=== PATIENT | male | born 1955 | race Caucasian/White ===

== ENCOUNTER → 2018-03-29 15:03 | Outpatient (CLI) | payer MEDICARE, SELFPAY ==
--- NOTE | 2018-03-29 15:50 | RAD_ITS ---
STUDY: X-RAY - ABDOMEN/PELVIS REASON FOR EXAM: Male, 62 years old. Follow-up bilateral renal stones multiple times. No current pain or issues. TECHNIQUE: Single AP view of the abdomen / pelvis. COMPARISON: 03/31/2016. 04/23/2015. FINDINGS: There is an unremarkable bowel gas pattern. The kidneys are not sufficiently visualized. No overt calculi detected. Stable atherosclerosis of the pelvic vessels. Age-appropriate osseous structures. RAD/Abdomen Single View IMPRESSION: No urolithiasis detected. Electronically Signed: Silvia Cruz MD at 2:42 EST , Service support ,
[2018-03-29 16:36] LABS: PSA,Total - Annual Screen 1.34 ng/mL (0.00-4.00)
--- OUTSIDE RECORDS SUMMARY | 2018-05-11 13:42 | XMS RPT_ITS ---
:1955 Author Organization OHIP Care Team Providers Name Role Phone MARTINEZ SRINIVASAN MD Attending Unavailable CRAIG MARTIN, MARTINEZ Berrios Primary Care Unavailable JACOB VELAZCO Attending Unavailable MARTINEZ SRINIVASAN MD Primary Care Unavailable MARTINEZ SRINIVASAN MD Attending Unavailable CRAIG MARTIN, MARTINEZ Berrios Primary Care Unavailable YAIMA MARTIN., DR. WHITTEN Attending Unavailable MARTINEZ SRINIVASAN MD Primary Care Unavailable JOSEPH Ibarra Attending Unavailable CRAIG MARTIN, MARTINEZ Berrios Primary Care Unavailable Poncho Aviles Attending Unavailable Poncho Aviles Referring Unavailable Martinez Srinivasan [facility] Care Unavailable PROBLEMS PROBLEMS DATE TYPE CONDITION / CODE ATTENDING STATUS SOURCE 08/04/2017 Admitting Mixed hyperlipidemia CRAIG MARTIN, Active [facility] Diagnosis / E78.2(ICD-10) [facility] Repository 08/04/2017 Admitting Type 2 diabetes CRAIG MARTIN, Active [facility] Diagnosis mellitus without [facility] complications / Repository E11.9(ICD-10) PROCEDURES PROCEDURES No Procedure Records FoundRESULTS RESULTS ABDOMEN SINGLE VIEW Observed: 03/29/2018 Status: F Source: [place] 3:37 PM [facility] HOSPITAL REPOSITORY [facility] Imaging Services [address] [place] [address] Abdomen Single View MR#: [id number] Acct: [id number] Name: VIPIN VELAZQUEZ Rep #: [id number] : 1955 M 62 From: Silvia Cruz MD PCP: Martinez Srinivasan MD Status: REG CLI Study: Abdomen Single View Date of Exam: 03/29/18 Exam# [id number] Ordering Dr: Poncho Aviles MD STUDY: X-RAY - ABDOMEN/PELVIS REASON FOR EXAM: Male, 62 years old. Follow-up bilateral renal stones multiple times. No current pain or issues. TECHNIQUE: Single AP view of the abdomen / pelvis. COMPARISON: 03/31/2016. 04/23/2015. FINDINGS: There is an unremarkable bowel gas pattern. The kidneys are not sufficiently visualized. No overt calculi detected. Stable atherosclerosis of the pelvic vessels. Age-appropriate osseous structures. RAD/Abdomen Single View IMPRESSION: No urolithiasis detected. 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 Values obtained with different assay methods cannot be used interchangably. When changing PSA assays in the course of monitoring a patient, additional sequential testing should be carried out to confirm baseline values. Performed By: #### L501.9910 #### [facility] [address] [place], [address] [facility] Collected: 03/09/2018 Status: F Source: [place] 7:43 AM [facility] REPOSITORY TYPE CODE TESTS RESULT OUT OF REFERENCE UNITS RANGE LAB GLU(LOINC) 80-115 mg/dL Glucose High Level 139 LAB NA(LOINC) 136-145 mmol/L Sodium Level 141 LAB K(LOINC) 3.5-5.1 mmol/L Potassium Level 4.5 LAB CL(LOINC) 98-107 mmol/L Chloride 103 LAB CO2(LOINC) 23-31 mmol/L CO2 30 LAB EBAL(LOINC mEq/L ) Electrolyte Balance 8.0 LAB BUN(LOINC) 7-18 mg/dL BUN 12 LAB CRE(LOINC) 0.70-1.30 mg/dL Creatinine Lvl (s) 0.91 LAB BC(LOINC) 7-27 ratio BUN/Creatinine 13 Ratio LAB CA(LOINC) 8.4-10.2 mg/dL Calcium Lvl 9.3 LAB PROT(LOINC 6.4-8.2 G/dL ) Total Protein 6.9 LAB ALB(LOINC) 3.4-4.8 G/dL Albumin Level 3.9 LAB GLB(LOINC) G/dL Globulin 3.0 LAB AG(LOINC) 1.1-2.5 ratio A/G Ratio 1.3 LAB BILT(LOINC 0.2-1.0 mg/dL ) Bili Total High 1.1 LAB AP(LOINC) 40-135 U/L Alk Phos 67 LAB AST(LOINC) 10-40 U/L AST/SGOT 15 LAB ALT(LOINC) 10-35 U/L ALT/SGPT 32 Performed By: #### GFR, CMP #### [place] [address] .GFR Collected: 03/09/2018 Status: F Source: [facility] 7:43 AM [facility]ATION REPOSITORY TYPE CODE TESTS RESULT OUT OF REFERENCE UNITS RANGE LAB GFRAA(LOINC ml/min/1.73 ) sqm GFR 102 Slovak Result Comment: GFR Population mean for , Non- Americans Ages 20-29 = 116 mL/min/1.73 sq.m. Ages 30-39 = 107 mL/min/1.73 sq.m. Ages 40-49 = 99 mL/min/1.73 sq.m. Ages 50-59 = 93 mL/min/1.73 sq.m. Ages 60-69 = 85 mL/min/1.73 sq.m. Ages 70+ = 75 mL/min/1.73 sq.m. Chronic Kidney Disease: Less than 60 mL/min/1.73 square meters End Stage Renal Disease: Less than 15 mL/min/1.73 square meters LAB GFRNO(LOINC) ml/min/1.73sqm GFR Non- 84 Result Comment: GFR Population mean for , Non- Americans Ages 20-29 = 116 mL/min/1.73 sq.m. Ages 30-39 = 107 mL/min/1.73 sq.m. Ages 40-49 = 99 mL/min/1.73 sq.m. Ages 50-59 = 93 mL/min/1.73 sq.m. Ages 60-69 = 85 mL/min/1.73 sq.m. Ages 70+ = 75 mL/min/1.73 sq.m. Chronic Kidney Disease: Less than 60 mL/min/1.73 square meters End Stage Renal Disease: Less than 15 mL/min/1.73 square meters Performed By: #### GFR, CMP #### [place] [address] FINAL SURGICAL Observed: 09/14/2017 Status: F Source: [facility] PATHOLOGY REPORT 10:16 AM [facility] REPOSITORY . Pathology Reports Accession: Collected Date/Time: Received Date/Time: Pathologist: [id number] 09/14/2017 10:16 EDT 09/15/2017 07:27 EDT MD JAQUI SANCHEZ Final Surgical Pathology Report DIAGNOSIS: ESOPHAGUS, BIOPSY -- SQUAMOUS ESOPHAGEAL MUCOSA WITH INCREASED INTRAEPITHELIAL EOSINOPHILS, SOME RYDER SHOWING GREATER THAN TWENTY EOSINOPHILS FOR HIGH POWER FIELD. THIS WOULD BE CONSISENT WITH EOSINOPHILIC ESOPHAGITIS IN THE PROPER CLINICAL CONTEXT. COMMENT: [facility]# [id number] CLINICAL INFORMATION: Procedure: EGD WITH ESOPHAGEAL BIOPSIES Preoperative diagnosis: GERD Postoperative diagnosis: GERD SPECIMEN: A ESOPH, BX - R/O ESOPHAGITIS - DYSPLASIA GROSS DESCRIPTION: Submitted in formalin consists of multiple wispy palacios white tissue fragments, each measuring less than 1 mm. and together aggregating approximately 3 mm. in greatest dimension. -1 dictated by Filomena Sanchez M.D. Dictated by JAQUI SANCHEZ MD MICROSCOPIC DESCRIPTION: Slides reviewed. Electronically Signed by Pathology Report verified by [facility] Electronically signed by JAQUI SANCHEZ MD Sign out Date: 09/16/2017 14:00 Performing Lab: [address] Performed By: #### SPFR #### [place] [address] CT THORAX W/ CONTRAST Observed: 08/12/2017 Status: F Source: [place] 3:30 PM [facility] REPOSITORY ORIGINAL CT THORAX W/ CONTRAST: TECHNIQUE: Multiplanar coronal, sagittal, axial reconstructions were created and reviewed by the radiologist on a separate workstation. This exam was performed according to our departmental dose optimization progr am, and includes the following measures where applicable: automated exposure control, adjustment of the mAs and/or kVp according to patient size and/or exam, and an iterative reconstruction algorithm. CLINICAL STATEMENT:ABN CHEST XRAY; cough COMPARISON: No direct comparison; chest radiographs 08/04/2017 FINDINGS: CHEST WALL AND LOWER NECK: Normal. LUNGS AND LARGE AIRWAYS: Bibasilar hypoventilatory changes noted. The lungs are otherwise clear. PLEURA: Normal without evidence of effusion or thickening. In the posterior costophrenic angles bilaterally there are nonspecific small areas of calcification present. AXILLA: No adenopathy is identified. MEDIASTINUM AND CHAIM: No mass or adenopathy seen. HEART AND PERICARDIUM: Heart size is normal. No pericardial effusion. VESSELS: Nonaneurysmal. ESOPHAGUS: Normal in course and appears diffusely thickened, nonspecific. INCLUDED UPPER ABDOMEN: There is a partially visualized 2.0 x 2.4 cm rounded hypodensity in the right lobe of the liver (image 59 series 2) measuring 10 Hounsfield units and compatible with a cyst. A pa rtially visualized left renal cyst noted.. OSSEOUS STRUCTURES: No suspicious lesions are identified. Concerning lesion on recent radiograph correlates to a bone island within the anterior third right rib. Multilevel degenerative changes are noted. IMPRESSION: 1. Area of concern on recent chest radiograph corresponds to a bone island in the right third rib. 2. Thickening of the distal esophageal wall could be inflammatory or neoplastic. Suggest upper endoscopy. I have personally reviewed the images of this examination and agree with the resident's findings and interpretation. Interpreted By: Tone Blair MD Preliminary Report By: Lennie Merchant MD Electronically Signed By: Tone Blair MD Dictated Date: 08/13/2017 8:42:14 AM Prelim Date: 08/13/2017 9:14:57 AM Sign Date: 08/13/2017 10:44:22 AM XR CHEST 2 VIEWS Observed: 08/04/2017 Status: F Source: [place] 3:20 PM [facility] REPOSITORY ORIGINAL XR CHEST 2 VIEWS CLINICAL STATEMENT: pain, cough for one to 2 weeks, fever Comparison: None FINDINGS: Heart size is normal. No focal consolidation, vascular congestion, pleural effusion, or pneumothorax. Question of a nodular density overlying the anterior right third rib is noted versus a bon e island. Further imaging is warranted. Mild degenerative changes of the spine. IMPRESSION: Question of nodular density right upper lobe versus bone island within the anterior right third rib. Recommend further imaging. No additional acute radiographic finding. I have personally reviewed the images of this examination and agree with the resident's findings and interpretation. Interpreted By: Opal Tena MD Preliminary Report By: Ambar Hutton DO Electronically Signed By: Opal Tena MD Dictated Date: 08/04/2017 3:54:22 PM Prelim Date: 08/04/2017 3:55:03 PM Sign Date: 08/04/2017 4:31:25 PM LIPID Collected: 08/04/2017 Status: F Source: [place] 7:19 AM [facility] REPOSITORY TYPE CODE TESTS RESULT OUT OF REFERENCE UNITS RANGE LAB CHOL(LOINC 131-200 mg/dL ) Cholesterol High 202 Result Comment: Cholesterol Reference Interval: Less than 200 Desirable 200-239 Borderline high risk 240 and above High risk LAB TRIG(LOINC) 40-150 mg/dL Triglycerides 102 Result Comment: Triglyceride Reference Interval: Less than 150 Normal 150-199 Borderline high risk 200-499 High risk 500 or higher Very high risk LAB HD(LOINC) 35-90 mg/dL HDL Cholesterol 53 Result Comment: HDL Reference Interval: Less than 40 Low - high risk 60 or above Optimal/lowers risk LAB LDL(LOINC) 0-130 mg/dL LDL Cholesterol 129 Result Comment: LDL is a calculated result and requires a 12-hr fast. LDL Reference Interval: Less than 100 Optimal 100-129 Near or above optimal 130-159 Borderline high risk 160-189 High risk 190 and above Very high risk Performed By: #### GFR, CMP, LIPID #### [place] [id number] [place], [place] [address] CMP Collected: 08/04/2017 Status: F Source: [place] 7:19 AM [facility] REPOSITORY TYPE CODE TESTS RESULT OUT OF REFERENCE UNITS RANGE LAB 1547-9 80-115 mg/dL GLUCOSE High 153 LAB NA(LOINC) 136-146 mEq/L Sodium Level 141 LAB K(LOINC) 3.5-5.1 mEq/L Potassium Level 4.6 LAB CL(LOINC) 98-107 mEq/L Chloride 104 LAB CO2(LOINC) 23-31 mEq/L CO2 29 LAB EBAL(LOINC mEq/L ) Electrolyte Balance 8.0 LAB BUN(LOINC) 7.0-18.0 mg/dL BUN 8.3 LAB CRE(LOINC) 0.6-1.2 mg/dL Creatinine Lvl (s) 1.0 LAB BC(LOINC) 7-27 ratio BUN/Creatinine 8 Ratio LAB CA(LOINC) 8.4-10.2 mg/dL Calcium Lvl 9.2 LAB PROT(LOINC 6.0-8.3 G/dL ) Total Protein 6.7 LAB ALB(LOINC) 3.4-4.8 G/dL Albumin Level 4.2 LAB GLB(LOINC) G/dL Globulin 2.5 LAB AG(LOINC) 1.1-2.5 ratio A/G Ratio 1.7 LAB BILT(LOINC 0.2-1.0 mg/dL ) Bili Total 0.6 LAB AP(LOINC) 40-135 IU/L Alk Phos 64 LAB AST(LOINC) 10-40 IU/L AST/SGOT 17 LAB ALT(LOINC) 10-35 IU/L ALT/SGPT 25 Performed By: #### GFR, CMP, LIPID #### [place] [address] .GFR Collected: 08/04/2017 Status: F Source: [facility] 7:19 AM [facility] REPOSITORY TYPE CODE TESTS RESULT OUT OF REFERENCE UNITS RANGE LAB GFRAA(LOINC ml/min/1.73 ) sqm GFR 96 [place] Result Comment: GFR Population mean for , Non- Americans Ages 20-29 = 116 mL/min/1.73 sq.m. Ages 30-39 = 107 mL/min/1.73 sq.m. Ages 40-49 = 99 mL/min/1.73 sq.m. Ages 50-59 = 93 mL/min/1.73 sq.m. Ages 60-69 = 85 mL/min/1.73 sq.m. Ages 70+ = 75 mL/min/1.73 sq.m. Chronic Kidney Disease: Less than 60 mL/min/1.73 square meters End Stage Renal Disease: Less than 15 mL/min/1.73 square meters LAB GFRNO(LOINC) ml/min/1.73sqm GFR Non- >60 Result Comment: GFR Population mean for , Non- Americans Ages 20-29 = 116 mL/min/1.73 sq.m. Ages 30-39 = 107 mL/min/1.73 sq.m. Ages 40-49 = 99 mL/min/1.73 sq.m. Ages 50-59 = 93 mL/min/1.73 sq.m. Ages 60-69 = 85 mL/min/1.73 sq.m. Ages 70+ = 75 mL/min/1.73 sq.m. Chronic Kidney Disease: Less than 60 mL/min/1.73 square meters End Stage Renal Disease: Less than 15 mL/min/1.73 square meters Performed By: #### GFR, CMP, LIPID #### [place] [address] ALLERGIES ALLERGIES DATE TYPE / CODE NAME / CODE REACTION SEVERITY SOURCE 05/30/2013 Drug Sulfa Hives Unknown [facility] Allergy/4160 (Sulfonamide Hospital 21597(SNOMED Antibiotics)/ Repository CT) [id number](RX NORM) 05/30/2013 Drug prednisone/F0 Unknown Unknown [facility] Allergy/4160 [id number](RXNO [facility] 32491(SNOMED RM) Repository CT) ENCOUNTERS ENCOUNTERS ADMIT/DISCHARGE ACCOUNT NUMBER ADMITTING ENCOUNTER LOCATION SOURCE CLASS 03/29/2018 [id number] Ambulatory [facility] ding:LAB Repository 03/09/2018 [id number] Ambulatory BBuilding[facility] Repository 09/14/2017/09/15/19 [id number] Ambulatory BBuilding:CINDY [facility] Repository 08/12/2017/08/13/19 [id number] Ambulatory BBuilding:RA [facility] Repository 08/04/2017/08/05/19 [id number] Ambulatory BBuilding:RA [facility] Repository 08/04/2017/08/09/[id number] ding:[facility] Repository PAYERS PAYERS ENCOUNTER GUARANTOR PAYER SUBSCRIBER SOURCE 03/29/2018 VIPIN Nielson [id number] DANIS Insurance:ANTHEM LANCEDOB: [place], [place] MEDICARE SENIOR [id number] [facility] [address]Sky: [phone] ADVANTAPolicy Number: Repository [phone] () [id number] Date:1101-09-03PY [address] [place] [address]EY: 03/29/2018 Secondary NOT GIVENUNK Nisreen Insurance:SELF PAY [facility] Number: Effective Repository Date:2018-03-29 03/09/2018 VIPIN [facility] LANCEDOB: [facility] MEDIBLUEPolicy Number: [id number] Repository DANIS [id number] [address] [place], [place] Date:2018-03-09 [place], [place] [address]Srb: [phone] [id number]: () Name:[facility] [phone] [id number], [place] ()Tel: [phone]: [phone] [facility]14/[facility] LANCEDOB: Insurance:ANTHEM LANCEDOB: [facility]Pol[facility] Number: [id number] Repository DANIS [id number] [address] [place], [place] Date:2017-09-11 [place], [place] [address]Yoo: [phone] [id number] [phone]: () Name:[facility] [phone] [id number], [place] ()Tel: [phone]: () [phone] 08/12/2017 [facility] LANCEDOB: Insurance:ANTHEM BLUE LANCEDOB: [facility] CROSS COMMERCIALPolicy [id number] Repository ADNIS Number: [address], [place] [id number] [place], [place] [address]Tlg: ([phone]) Date:2017-08-11 [address]Kyl: (HP) [id number] Name:BPO KOJO ()Tel: [phone], [place] 000-0000 (WP) [phone]: 08/04/2017 [facility] LANCEDOB: Insurance:ANTHEM LANCEDOB: [facility] PREMIER HEALTHBLUEPolicy Number: [id number] Repository DANIS [id number] [address] [place], [place] Date:2016-11-15 - [place], [place] [address]Jie: [phone] [id number]: () Name:[phone] [address]Bzmtcnx, [place] ()Tel: [phone]: ([phone] 08/04/2017 [facility] LANCEDOB: Insurance:HUMANA GOLD LANCEDOB: [facility] CHOICE MEDICAREPolicy [id number] Repository DANIS Number: [address] [place], [place] [id number] [place], [place] [address]Gis: [phone] Date:2017-08-04 [address]Cec: (HP) [id number] [phone] Name:NPO Kojo ()Tel: [phone], [place] 000-0000 (WP) [phone]:
== END ==
PROVIDERS: Family Provider Family Medicine; PCP Family Medicine; Referring Provider Urology; Visit Provider Urology
DX: Z12.5 Encounter for screening for malignant neoplasm of prostate (principal); N20.0 Calculus of kidney
CPT/HCPCS: 36415; 74018; 84153; G0103

== ENCOUNTER → 2019-04-07 14:12 | Outpatient (CLI) | payer MEDICARE, SELFPAY ==
--- NOTE | 2019-04-07 14:42 | RAD_ITS ---
STUDY: X-RAY - ABDOMEN/PELVIS REASON FOR EXAM: Male, 63 years old. Flank pain TECHNIQUE: AP supine and upright views of the abdomen and pelvis. COMPARISON: None. FINDINGS: Normal visualized lung bases. There is an unremarkable bowel gas pattern. There is no demonstrated free abdominal air. The visualized liver, spleen and kidneys are grossly normal in size and morphology. No calcifications overlying either kidney or along expected courses of either ureter. However, one could be obscured by the overlying bowel gas and stool Normal soft tissue structures. Normal visualized osseous structures. RAD/Abdomen Single View IMPRESSION: Normal x-ray examination of the abdomen and pelvis. Electronically Signed: Victorino Davis MD at 11:26 EST , Service support ,
[2019-04-07 16:28] LABS: Anion Gap 4 (5-15); BUN 12 mg/dL (7-18); Calcium,Total 8.9 mg/dL (8.5-10.1); Chloride 105 mmol/L (98-107); Creatinine, Serum 0.92 mg/dL (0.70-1.30); EST Glomerular Filtration Rate 87 mL/min (>60); Est Glom Filt Rate - Afr Amer 106 mL/min (>60); Glucose 183 mg/dL (74-106); PSA,Total - Annual Screen 3.48 ng/mL (0.00-4.00); Sodium Level 140 mmol/L (136-145)
== END ==
PROVIDERS: Family Provider Family Medicine; PCP Family Medicine; Referring Provider Urology; Visit Provider Urology
DX: Z12.5 Encounter for screening for malignant neoplasm of prostate (principal); N20.1 Calculus of ureter
CPT/HCPCS: 36415; 74018; 80048; 84153; G0103

== ENCOUNTER → 2020-05-14 15:33 | Outpatient (CLI) | payer MEDICARE, SELFPAY ==
--- NOTE | 2020-05-14 15:45 | RAD_ITS ---
STUDY: X-RAY - ABDOMEN/PELVIS REASON FOR EXAM: Male, 64 years old. follow up, Hx bilateral [place] TECHNIQUE: Two AP supine views of the abdomen and pelvis. COMPARISON: 04/07/2019. FINDINGS: Normal visualized lung bases. There is an unremarkable bowel gas pattern. There is no demonstrated free abdominal air. The visualized liver, spleen and kidneys are grossly normal in size and morphology. Normal soft tissue structures. Normal visualized osseous structures. RAD/Abdomen Single View IMPRESSION: Normal x-ray examination of the abdomen and pelvis. Electronically Signed: Dorian Johnson MD at 7:42 EST , Service support ,
[2020-05-14 17:15] LABS: PSA,Total - Annual Screen 1.77 ng/mL (0.00-4.00)
== END ==
PROVIDERS: PCP Family Medicine; Visit Provider Urology
DX: Z12.5 Encounter for screening for malignant neoplasm of prostate (principal); Z87.442 Personal history of urinary calculi
CPT/HCPCS: 36415; 74018; 84153; G0103

== ENCOUNTER 2021-06-10 15:15 | Outpatient (CLI) | payer MEDICARE, SELFPAY ==
[2021-06-10 16:21] LABS: PSA,Total - Annual Screen 1.66 ng/mL (0.00-4.00)
== END 2021-06-10 23:59 | disposition home or self-care (01) ==
LOC: LAB 15:17
PROVIDERS: Referring Provider Urology; Visit Provider Urology
DX: Z12.5 Encounter for screening for malignant neoplasm of prostate (principal)
CPT/HCPCS: 36415; 84153; G0103

== ENCOUNTER → 2021-08-29 | Outpatient (CLI) | payer MEDICARE, SELFPAY ==
--- NOTE | 2021-08-29 13:38 | RAD_ITS ---
STUDY: X-RAY - ABDOMEN/PELVIS REASON FOR EXAM: Male, 66 years old. PERSONAL HISTORY OF URINARY CALCULI TECHNIQUE: 2 views of the abdomen. COMPARISON: 05/14/2020. FINDINGS: Normal visualized lung bases. There is an unremarkable bowel gas pattern. There is no demonstrated free abdominal air. No calculi identified overlapping the urinary tract. The visualized liver, spleen and kidneys are grossly normal in size and morphology. Normal soft tissue structures. Normal visualized osseous structures. RAD/Abdomen Single View IMPRESSION: Normal x-ray examination of the abdomen and pelvis. Electronically Signed: Ruddy Churchill MD at 2:53 EDT ,
== END | disposition home or self-care (01) ==
LOC: RAD 13:37
PROVIDERS: Referring Provider Urology; Visit Provider Urology
DX: Z87.442 Personal history of urinary calculi (principal)
CPT/HCPCS: 74018

== ENCOUNTER → 2022-09-08 | Outpatient (CLI) | payer MEDICARE, SELFPAY ==
--- NOTE | 2022-09-08 14:45 | RAD_ITS ---
STUDY: X-RAY - ABDOMEN/PELVIS REASON FOR EXAM: Male, 67 years old. PERSONAL HISTORY OF URINARY CALCULI TECHNIQUE: frontal view COMPARISON: None. FINDINGS: There is an unremarkable bowel gas pattern. There is no demonstrated free abdominal air. Possible 2 mm left renal calculus. Normal soft tissue structures. Normal visualized osseous structures. RAD/Abdomen Single View IMPRESSION: Possible left renal calculus. Electronically Signed: Marco Sherwood DO at 20:41 EDT ,
[2022-09-08 15:43] LABS: PSA,Total - Annual Screen 1.67 ng/mL (0.00-4.00)
== END | disposition home or self-care (01) ==
PROVIDERS: Referring Provider Urology; Visit Provider Urology
DX: Z12.5 Encounter for screening for malignant neoplasm of prostate (principal); Z87.442 Personal history of urinary calculi
CPT/HCPCS: 36415; 74018; 84153; G0103

== ENCOUNTER → 2023-03-31 | Outpatient (CLI) | payer MEDICARE, SELFPAY ==
--- NOTE | 2023-03-31 15:50 | RAD_ITS ---
EXAM: XR ABDOMEN, 1 VIEW CLINICAL INDICATION: UNSPECIFIED ABDOMINAL PAIN/DYSURIA TECHNIQUE: Frontal supine view of the abdomen/pelvis. COMPARISON: No relevant prior studies available. FINDINGS: LOWER THORAX: No acute pathology. GASTROINTESTINAL TRACT: Unremarkable. Non-obstructive. No bowel or stomach distention. ORGANS: Unremarkable as visualized. No organomegaly. No abnormal calcifications. BONES/JOINTS: No acute pathology. SOFT TISSUES: No acute pathology. RAD/Abdomen Single View IMPRESSION: Non-obstructive bowel gas pattern. Electronically Signed: Maico Shane MD at 0:25 EST ,
== END | disposition home or self-care (01) ==
LOC: LAB 15:22
PROVIDERS: Visit Provider Urology
DX: R30.0 Dysuria (principal)
CPT/HCPCS: 74018; 87086

== ENCOUNTER → 2023-09-21 | Outpatient (CLI) | payer MEDICARE, SELFPAY | END | disposition home or self-care (01) | LOC: LABSPEC 15:24 | PROVIDERS: Referring Provider Urology; Visit Provider Urology | DX: R30.0 Dysuria (principal) | CPT/HCPCS: 87086; 87088; 87186 ==

== ENCOUNTER 2023-12-01 10:26 | Day surgery (SDC) | payer MEDICARE, SELFPAY ==
[2023-12-01] VITALS (9 sets, daily range): BP systolic 87–163; BP diastolic 47–81; PULSE 67–83; RESP 16–18; TEMP 36–36.1; O2SAT 99–100; BMI 21.7
[2023-12-01] MEDS: Lactated Ringers 1,000 ML 15 ML IV (10:53)
[2023-12-01 11:10] LABS: Bedside Glucose 118 mg/dL (74-106)
--- NOTE | 2023-12-01 11:13 | PRE.ANES_ITS ---
ASA Classification* ASA Classification ASA Classification: 2 Assessment & Plan Anesthesia* Anesthesia Assessment Anesthesia Assessment: Discussed sedation and/or anesthesia options, risks, benefits, and alternatives with patient/parents/legal guardian/POA. Questions invited. The patient/parents/legal guardian/POA seems to understand and agrees to proceed with anesthesia plan. Reviewed the physical assessment, medical history, allergy history and patient home medications list prior to surgery/procedure/anesthetic and documented any changes. Performed airway and anesthesia risk assessments. Anesthesia Type Anesthesia Type: MAC History Source History Obtained from:: Patient and Chart Anesthesia Focused Assessment* Temperature: 96.8 F Pulse Rate: 83 Blood Pressure: 163/81 Respiratory Rate: 16 Pulse Ox: 100 Oxygen Delivery Method: Room Air Airway Assessment Mouth opens: >3 cm Mallampati Score: I Teeth Condition: Dentures (Dentures are out) and Full Neck Range of motion (ROM): Full ROM Pertinent Findings EKG Pertinent Findings:: May 30, 2013. Normal sinus rhythm. RSR pattern in V1 suggests right ventricular conduction delay. Focused Labs Anesthesia Preop lab: CBC WBC 8.3 K/mm3 (4.4-11.0) 05/30/13 13:45 RBC 4.89 M/mm3 (4.6-6.2) 05/30/13 13:45 Hgb 14.9 g/dl (13.0-16.5) 05/30/13 13:45 Hct 44.4 % (40-54) 05/30/13 13:45 Plt Count 305 K/mm3 (150-450) 05/30/13 13:45 CHEMISTRY Potassium 4.0 mmol/L (3.5-5.1) 04/07/19 14:31 Sodium 140 mmol/L (136-145) 04/07/19 14:31 BUN 12 mg/dL (7-18) 04/07/19 14:31 Creatinine 0.92 mg/dL (0.70-1.30) 04/07/19 14:31 Glucose 183 mg/dL (74-106) H 04/07/19 14:31 POC Glucose 118 mg/dL (74-106) H 12/01/23 10:51 COAG Pre-Assessment Diagnosis/Proposed Procedure Planned Operative Procedure(s): CSCOPE Anesthesia History 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 When Was Last Pacemaker Check QUESTION #4 FULL TEXT: You/Your Family Experience fever (hyperthermia) with Anesthesia Last Oral Intake Last Oral intake: Last Oral Intake NPO since 07:30 12/01/23 10:46 Meds taken in AM with sips of Yes 12/01/23 10:46 water? 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 mixer operator: PONV - quick mixer operator Female No 11/26/23 08:45 HX of Motion Sickness No 11/26/23 08:45 HX of N/V After Surgery No 11/26/23 08:45 Non-Smoker Yes 11/26/23 08:45 Duration of Surgery greater No 11/26/23 08:45 than 60 minutes Number of Risk Factors 1 11/26/23 08:45 PONV Score Low Risk 11/26/23 08:45 Height & Weight Height & Weight: Anesthesia: Height & Weight Height 5 ft 2 in 12/01/23 10:46 Weight: 54 kg 12/01/23 10:46 Body Mass Index (BMI) 21.7 12/01/23 10:46 Respiratory Assessment Respiratory Assessment - quick mixer operator: Respiratory Tract Infection Hx - quick mixer operator Hx Respiratory Tract Infection No 11/26/23 08:45 STOP Sleep Apnea STOP Sleep Apnea - quick mixer operator: STOP Sleep Apnea - quick mixer operator Hx Hypertension Yes: CONTROLLED WITH MED 11/26/23 08:45 Hx Sleep Apnea No 11/26/23 08:45 CPAP No 06/17/13 10:51 BIPAP No 06/17/13 10:51 Do you snore loudly (louder No 11/26/23 08:45 than talking or can be heard Do you often feel tired/ No 11/26/23 08:45 fatigued/ sleepy during daytime? Has anyone observed you stop No 11/26/23 08:45 breathing during sleep? STOP Results Negative 11/26/23 08:45 QUESTION #5 FULL TEXT : Do you snore loudly (louder than talking or can be heard through closed doors)? 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 Specify any problems Hx of Preganancy in last 3 N/A 11/26/23 08:45 Months Nurse Filling Out Transfusion DSCHRIBER 11/26/23 08:45 & Questions: Date: 11/26/23 11/26/23 08:45 Time: 08:47 11/26/23 08:45 Patient unable to answer at this time (ie. confused, unrespo /Reproduction History /Reproductive History - quick mixer operator: /Reproductive Hx- quick mixer operator Hx Now No 11/26/23 08:45 Gestational Age (in weeks): EDC: Hx Hx Para Hx Section SAB No 11/26/23 08:45 Active Medications Active Medications: Current Medications Generic Name Dose Route Start Last Admin Trade Name Freq PRN Reason Stop Dose Admin Lactated Ringer's 1,000 mls @ 15 mls/hr 12/01/23 10:45 12/01/23 10:53 IV 15 mls/hr .Q48H VERONICA Administration PFSH Medical History Wears dentures Diabetes Prostate disease High cholesterol Injury of back Gastric reflux Non-smoker Hypertension Home Medications ?Medication ?Instructions ?Recorded ?Last Taken ?Type acetaminophen 500 mg tablet 500 mg PO Q6H PRN pain 11/26/23 Unknown History (Acetaminophen Extra Strength) cetirizine 10 mg tablet (24Hour 10 mg PO DAILY PRN allergy symptoms 11/26/23 Unknown History Allergy) cholecalciferol (vitamin D3) 1,250 1,250 mcg PO MO 11/26/23 Unknown History mcg (50,000 unit) capsule cholecalciferol (vitamin D3) 25 25 mcg PO DAILY 11/26/23 Unknown History mcg (1,000 unit) capsule (Vitamin D3) losartan 100 mg tablet 100 mg PO DAILY 11/26/23 12/01/23 07:30 History metformin 500 mg tablet 1,000 mg PO QHS 11/26/23 Unknown History metformin 500 mg tablet,extended 500 mg PO DINNER 11/26/23 Unknown History release 24 hr omeprazole 20 mg capsule,delayed 20 mg PO DAILY 11/26/23 12/01/23 07:30 History release pravastatin 40 mg tablet 40 mg PO DAILY 11/26/23 Unknown History tamsulosin 0.4 mg capsule 0.4 mg PO QHS 11/26/23 Unknown History Allergy/AdvReac Type Severity Reaction Status Date / Time Sulfa (Sulfonamide Allergy Hives Verified 12/01/23 10:44 Antibiotics) Surgical History Hx of right cataract extraction Hx of left cataract extraction Hx of colonoscopy Hx of cystoscopy Social History Smoking Status: Never smoker Review of Systems (Anesthesia) ROS Narrative System reviewed and no additional complaints, except as documented.
--- NOTE | 2023-12-01 11:30 | COLBX_PTH ---
PATIENT: VIPIN VELAZQUEZ LOC: [facility] U#:[id number] AGE/SX: 68/M ROOM: RE12/01/[address]: Dr. Vamshi Le DO : 1955 BED: DIS: 12/01/2023 SPEC #: [id number] RECD: 12/01/23 18:27 STATUS: DANITZA RESasha #: [id number] MANJINDER: 12/01/23 11:[address]: Vamshi Le DEPT: SURGICAL PATHOLOGY RECD BY: Cristin Luis ENTERED: 12/02/23 08:12 SP TYPE: COLON BX OTHR DR: Zina Primary Care Phys Tissues: A - Ascending colon B - Sigmoid colon biopsy C - Sigmoid colon biopsy Procedures: Surgery Specimen Level IV HEADER OPERATION: Colonoscopy with polypectomy and tatoo PRE-OP DIAGNOSIS: Colonic fistula TISSUE SUBMITTED: A- Ascending colon polyp, B- Sigmoid colon polyp, C- Sigmoid colon biopsy MICROSCOPIC DIAGNOSIS A. Ascending colon polyp, polypectomy: Fragments of tubular adenoma. B. Sigmoid colon polyp, polypectomy: A fragment of colonic mucosa with changes suggestive of hyperplastic polyp. C. Sigmoid colon, biopsy: A fragment of colonic mucosa with mild non-specific chronic inflammation and reactive changes. See comment. Yomi 12/03/2023 COMMENT C. Cryptitis and crypt abscesses or granulomas are not seen. Correlation with clinical, endoscopic findings and appropriate follow up are necessary. MICROSCOPIC DESCRIPTION Slides are reviewed. GROSS DESCRIPTION A. Received in fixative is one container labeled with the patient's name and designated Ascending colon polyp. The specimen consists of two irregular fragments of light mars soft tissue that in aggregate measure 0.5 x 0.2 x 0.1 cm. The specimen is totally submitted in one cassette. B. Received in fixative is one container labeled with the patient's name and designated Sigmoid colon polyp. The specimen consists of two irregular fragments of light mars soft tissue that in aggregate measure 0.6 x 0.5 x 0.1 cm. The specimen is totally submitted in one cassette. C. Received in fixative is one container labeled with the patient's name and designated Sigmoid colon biopsy. The specimen consists of one irregular fragment of light mars soft tissue that measures 0.5 x 0.3 x 0.1 cm. The specimen is totally submitted in one cassette. Heather 12/02/2023 TC:1 CPT:17119m3
--- NOTE | 2023-12-01 11:36 | HP.PCM_ITS ---
History and Physical Date of Admission: 12/01/23 VIPIN VELAZQUEZ, is a 68 M who presents to the office today for initial consult. *BG established 7 pt reports that about 4 months ago he began having lower abdominal pain and then began noticing stool in his urine. Pt reports that his PCP in [place] would like him to have a colonoscopy before he has surgery in [place]. Pt is unable to remember what the surgery is called. ROS Const Constitutional: Positive for weight change (weight loss ); No fatigue or fever(s) ENT ENT: No difficulty swallowing Gastro GI: Positive for abdominal pain, change in bowel habits and constipation; No belching, bloating, change in stool character, coffee ground emesis, cramping, diarrhea, heartburn, difficulty swallowing, feeling full early, excessive flatus, incontinent of stools, Vomiting blood/hematemesis, Blood in stool, loose stools, Black,tarry stools, nausea/dyspepsia, pain with swallowing, vomiting or other Musc Musculoskeletal: No joint pain Skin Skin: No yellowing of the eye or itchy eyes Psych Psychiatric: No anxiety and No depression Endo Endocrine: Positive for weight change (weight loss ); No fatigue Aller/Imm Allergy/Immunologic: No itchy eyes Celio/Lymp Hematologic/Lymphatic: No easy bleeding or easy bruising Exam Const General: cooperative and comfortable Nutritional Appearance: average body habitus and well nourished [facility] Head: normal to inspection Ears: hearing grossly normal bilaterally Nose: external nose normal Face and sinus: normal facial exam Mouth: oral mucosae normal Throat: posterior oropharynx normal Eyes General: appearance normal, both eyes and all related structures Neck Neck: normal visual inspection Chest Chest palpation & inspection: normal inspection of the chest and normal palpation of entire chest wall Resp Effort & Inspection: normal respiratory effort Auscultation: Bilateral: Clear to Auscultation Cardio Palpation: normal PMI Rate: regular rate Rhythm: regular rhythm GI Inspection: normal to inspection Auscultation: normal bowel sounds Percussion: normal to percussion Palpation: no hepatosplenomegaly Skin General: no rashes or lesions noted Neuro General: patient alert Extrem General: normal to inspection Psych Affect: normal affect Assessment and Plan Assessment and Plan (1) Colonic fistula: Status: Acute Plan: 68-year-old gentleman who was 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 He is scheduled to have surgery. Patient said he needs a colonoscopy to fully evaluate his colon prior to him undergoing surgery. He was explained alternatives, risk, benefits include not withstanding bleeding, infection, sepsis, perforation, need for surgery . He will have an ASA of 3. Medications: Discontinued hydrocodone-acetaminophen 5-300 mg (Vicodin) May substitute Hydrocodone/Acetaminophen 5/325 mg Discontinued Reason: Pt no longer taking 1 TAB PO Q4H PRN PRN 20 tabs 0RF Pain I have examined the patient and the H&P has been reviewed. There are no clinical changes since date of exam.
--- NOTE | 2023-12-01 12:20 | PCM.POST.ANE ---
Anesthesia: Postop Eval I Current Vital Signs Temperature: 97 F Pulse Rate: 67 Blood Pressure: 110/50 Respiratory Rate: 18 Pulse Ox: 99 Oxygen Delivery Method: Room Air Assessment Airway patent: Yes Spontaneous unlabored respirations: Yes Mental status: Awake and Calm nausea: No Vomiting: No Anesthesia Complication: No Fluid Hydration Crystalloid volume administer (ml): 800 Total IV fluid infused: 800 Progress Note Anesthesia document: Postop Eval 1 completed: Yes
--- NOTE | 2023-12-01 12:22 | OP.CCLET_ITS ---
12/01/2023 No Primary Care Physician Re : Colonoscopy procedure for Edgard Hartman Dear Care Physician This procedure was performed on Friday, December 01, 2023. My impressions and recommendations are as follows: Impressions : - Preparation of the colon was fair. - Internal hemorrhoids. - One 3 mm polyp in the ascending colon, removed with a jumbo cold forceps. Resected and retrieved. - Localized moderate inflammation was found in the recto-sigmoid colon and in the sigmoid colon secondary to colitis. Biopsied. Tattooed. - One 7 mm polyp in the sigmoid colon, removed with a hot snare. Resected and retrieved. - Stool in the rectum, in the sigmoid colon, in the transverse colon and in the cecum. Recommendations : - Discharge patient to home. - Resume previous diet. - Continue present medications. - Await pathology results. - Repeat colonoscopy in 5 years for surveillance. - Use original regular Metamucil one teaspoon PO BID. - Augmentin (amoxicillin/clavulanate) 875 mg PO BID for 10 days. My findings are described in the full procedure note, which is enclosed. If I can be of further assistance, please feel free to contact me at . Sincerely, Vamshi Le, 12/01/2023 12:21:46 PM This report has been signed electronically.
--- NOTE | 2023-12-01 12:22 | OP.COLON_ITS ---
Patient Name: Edgard Hartman Procedure Date: 12/01/2023 9:27 AM Date of : 1955 Age: 68 Procedure: Colonoscopy Indications: Follow-up for history of adenomatous polyps in the colon, Abnormal CT of the GI tract, Suspected diverticulitis Providers: Vamshi Le DO Medicines: Monitored Anesthesia Care Patient Profile: This is a 68 year old male. Refer to note in patient chart for documentation of history and physical. Last Colonoscopy: 5 years ago. Complications: No immediate complications. Procedure: Pre-Anesthesia Assessment: - Prior to the procedure, a History and Physical was performed, and patient medications and allergies were reviewed. The patient is competent. The risks and benefits of the procedure and the sedation options and risks were discussed with the patient. All questions were answered and informed consent was obtained. Patient identification and proposed procedure were verified by the physician in the pre-procedure area. Mental Status Examination: alert and oriented. Airway Examination: normal oropharyngeal airway and neck mobility. Respiratory Examination: clear to auscultation. CV Examination: normal. Prophylactic Antibiotics: The patient does not require prophylactic antibiotics. Prior Anticoagulants: The patient has taken no anticoagulant or antiplatelet agents. ASA Grade Assessment: II - A patient with mild systemic disease. After reviewing the risks and benefits, the patient was deemed in satisfactory condition to undergo the procedure. The anesthesia plan was to use monitored anesthesia care (MAC). Immediately prior to administration of medications, the patient was re-assessed for adequacy to receive sedatives. The heart rate, respiratory rate, oxygen saturations, blood pressure, adequacy of pulmonary ventilation, and response to care were monitored throughout the procedure. The physical status of the patient was re-assessed after the procedure. After I obtained informed consent, the scope was passed under direct vision. Throughout the procedure, the patient's blood pressure, pulse, and oxygen saturations were monitored continuously. The Colonoscope was introduced through the anus and advanced to the cecum, identified by appendiceal orifice and ileocecal valve. The colonoscopy was performed without difficulty. The patient tolerated the procedure well. The quality of the bowel preparation was fair. The ileocecal valve, appendiceal orifice, and rectum were photographed. Scope In: 11:46:41 AM Scope Withdrawal Time 0 hours 21 minutes 50 seconds Scope Out: 12:12:04 PM Total Procedure Duration Time 0 hours 25 minutes 23 seconds Findings: The perianal and digital rectal examinations were normal. Internal hemorrhoids were found during retroflexion. The hemorrhoids were Grade I (internal hemorrhoids that do not prolapse). A 3 mm polyp was found in the ascending colon. The polyp was sessile. The polyp was removed with a jumbo cold forceps. Resection and retrieval were complete. Verification of patient identification for the specimen was done. Estimated blood loss was minimal. Localized moderate inflammation characterized by erythema, friability and granularity was found in the recto-sigmoid colon and in the sigmoid colon. Biopsies were taken with a cold forceps for histology. Verification of patient identification for the specimen was done. Estimated blood loss was minimal. Area was tattooed with an injection of 1 mL of Cornelia ink. Estimated blood loss was minimal. A 7 mm polyp was found in the sigmoid colon. The polyp was sessile. The polyp was removed with a hot snare. Resection and retrieval were complete. Verification of patient identification for the specimen was done. Estimated blood loss was minimal. Stool was found in the rectum, in the sigmoid colon, in the transverse colon and in the cecum. Multiple small and large-mouthed diverticula were found in the recto-sigmoid colon and sigmoid colon. Impression: - Preparation of the colon was fair. - Internal hemorrhoids. - One 3 mm polyp in the ascending colon, removed with a jumbo cold forceps. Resected and retrieved. - Localized moderate inflammation was found in the recto-sigmoid colon and in the sigmoid colon secondary to colitis. Biopsied. Tattooed. - One 7 mm polyp in the sigmoid colon, removed with a hot snare. Resected and retrieved. - Stool in the rectum, in the sigmoid colon, in the transverse colon and in the cecum. Recommendation: - Discharge patient to home. - Resume previous diet. - Continue present medications. - Await pathology results. - Repeat colonoscopy in 5 years for surveillance. - Use original regular Metamucil one teaspoon PO BID. - Augmentin (amoxicillin/clavulanate) 875 mg PO BID for 10 days. Procedure Code(s): --- Professional --- 99219, Colonoscopy, flexible; with removal of tumor(s), polyp(s), or other lesion(s) by snare technique 58365, 59, Colonoscopy, flexible; with biopsy, single or multiple 00017, Colonoscopy, flexible; with directed submucosal injection(s), any substance CPT copyright 2021 [employer]. All rights reserved. The codes documented in this report are preliminary and upon trimming machine set up operator review may be revised to meet current compliance requirements. Vamshi Le DO 12/01/2023 12:21:46 PM This report has been signed electronically. Number of Addenda: 0 Note Initiated On: 12/01/2023 9:27 AM
--- NOTE | 2023-12-01 12:52 | PCM.POSTANE2 ---
Anesthesia Postop Eval I Sum Postop Eval Completion status Anesthesia document: Postop Eval 1 completed: Yes Anesthesia Postop Eval I Summary Anesthesia Postop Eval I Summary: Anesthesia Postop Eval I: Assessment Summary Airway patent Yes 12/01/23 12:21 [email or web address] Spontaneous unlabored Yes 12/01/23 12:21 [email or web address] respirations Mental status Awake,Calm 12/01/23 12:21 [email or web address] nausea No 12/01/23 12:21 [email or web address] Vomiting No 12/01/23 12:21 [email or web address] Anesthesia Postop Eval I: Fluid Summary Crystalloid volume administer 800 12/01/23 12:21 [email or web address] (ml) Colloids volume administered ( ml) Blood Product volume administered (ml) Total IV fluid infused 800 12/01/23 12:21 [email or web address] Anesthesia Postop Eval I: Summary Notes Anesthesia Complication No 12/01/23 12:21 [email or web address] Anesthesia Complication Comment: Post-operative progress note Anesthesia: Postop Eval II Evaluation Mental status: Awake Pain Level: 0 nausea: No Vomiting: No
== END 2023-12-01 13:02 | disposition home or self-care (01) ==
LOC: EN 10:29 → AC 10:31
PROVIDERS: Visit Provider Internal Medicine Gastroenterology
PROC: 0DJD8ZZ Inspection of Lower Intestinal Tract, Via Natural or Artificial Opening Endoscopic (ICD-10-PCS; CPT 45378; principal; 2023-12-01 11:25)
DX: D12.2 Benign neoplasm of ascending colon (principal); E11.9 Type 2 diabetes mellitus without complications; K52.9 Noninfective gastroenteritis and colitis, unspecified; K63.2 Fistula of intestine; K64.0 First degree hemorrhoids; K63.89 Other specified diseases of intestine; I10 Essential (primary) hypertension; K21.9 Gastro-esophageal reflux disease without esophagitis; E78.00 Pure hypercholesterolemia, unspecified; Z79.84 Long term (current) use of oral hypoglycemic drugs; Z79.899 Other long term (current) drug therapy
CPT/HCPCS: 45385; 45380; 45381; 82962; 88305; J7120; A4648; J2405